=== PATIENT | male | born 1985 | race American Indian/Alaskan Native ===

== ENCOUNTER 2016-11-04 13:45 | Emergency (ER) | payer MEDICARE ==
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
[2016-11-04 15:22] LABS: Hematocrit 47.8 % (35.5-45.6); Hemoglobin 16.3 gm/dl (11.8-15.2); Mean Corpuscular HGB Conc 34 % (32-34); Mean Corpuscular Hemoglobin 28 pg (28-32); Mean Corpuscular Volume 83 fl (84-94); Platelet Count 267 K/mm3 (140-440); Red Blood Count 5.76 M/mm3 (3.65-5.03); Red Cell Distribution Width 13.3 % (13.2-15.2); White Blood Count 5.6 K/mm3 (4.5-11.0)
[2016-11-04 15:30] LABS: Basophils % (Auto) 0.6 % (0.0-1.8); Eosinophils % (Auto) 1.3 % (0.0-4.3)
[2016-11-04 15:46] LABS: Creatine Kinase MB 1.3 ng/mL (0.0-4.0)
[2016-11-04 15:47] LABS: Alanine Aminotransferase 21 units/L (7-56); Albumin 4.6 g/dL (3.9-5); Albumin/Globulin Ratio 1.3 %; Alkaline Phosphatase 58 units/L (35-129); Anion Gap 19 mmol/L; BUN/Creatinine Ratio 7.27; Bilirubin,Total 0.9 mg/dL (0.1-1.2); Blood Urea Nitrogen 8 mg/dL (9-20); Calcium 9.7 mg/dL (8.4-10.2); Carbon Dioxide 27 mmol/L (22-30); Chloride 98.7 mmol/L (98-107); Creatine Kinase 261 units/L (55-170); Glucose 87 mg/dL (75-100); Lipase 35 units/L (13-60); Potassium 4.2 mmol/L (3.6-5.0); Sodium 140 mmol/L (137-145); Total Protein 8.1 g/dL (6.3-8.2)
[2016-11-04 18:41] LABS: Urine Drugs of Abuse Note Disclamer
[2016-11-04 19:18] LABS: Bilirubin,Urine NEG (Negative); Blood,Urine NEG (Negative); Ketones,Urine NEG (Negative); Leukocyte Esterase,Urine NEG (Negative); Nitrite,Urine NEG (Negative); Protein,Urine <15 mg/dL mg/dL (Negative); RBC,Urine < 1.0 /HPF (0.0-6.0); Urobilinogen,Urine < 2.0 mg/dL (<2.0); WBC,Urine < 1.0 /HPF (0.0-6.0)
[2016-11-04 20:40] VITALS: BP 142/91
[2016-11-04 21:33] LABS: Creatine Kinase 244 units/L (55-170); Creatine Kinase MB 1.1 ng/mL (0.0-4.0)
--- NOTE | 2016-11-05 13:03 | ED Elopement Review ---
ED Pt Elopement review - Results review Lab results: Laboratory Tests 11/04/16 11/04/16 11/04/16 15:08 15:08 15:08 WBC 5.6 RBC 5.76 H Hgb 16.3 H Hct 47.8 H MCV 83 L MCH 28 MCHC 34 RDW 13.3 Plt Count 267 Lymph % (Auto) 35.5 H [place] % (Auto) 8.3 H Eos % (Auto) 1.3 Baso % (Auto) 0.6 Lymph # 2.1 [place] # 0.5 Eos # 0.1 Baso # 0.0 Seg Neutrophils % 54.3 Seg Neutrophils # 3.2 APTT 25.2 Sodium 140 Potassium 4.2 Chloride 98.7 Carbon Dioxide 27 Anion Gap 19 BUN 8 L Creatinine 1.1 Estimated GFR > 60 BUN/Creatinine Ratio 7.27 Glucose 87 Calcium 9.7 Total Bilirubin 0.9 AST 28 ALT 21 Alkaline Phosphatase 58 Total Creatine Kinase 261 H CK-MB (CK-2) 1.3 CK-MB (CK-2) Rel Index 0.4 Troponin T < 0.010 Total Protein 8.1 Albumin 4.6 Albumin/Globulin Ratio 1.3 Amylase Lipase 35 Urine Color Urine Turbidity Urine pH Ur Specific [place] Urine Protein Urine Glucose (UA) Urine Ketones Urine Blood Urine Nitrite Urine Bilirubin Urine Urobilinogen Ur Leukocyte Esterase Urine WBC (Auto) Urine RBC (Auto) U Epithel Cells (Auto) Urine Opiates Screen Urine Methadone Screen Ur Barbiturates Screen Ur Phencyclidine Scrn Ur Amphetamines Screen U Benzodiazepines Scrn Urine Cocaine Screen U Marijuana (THC) Screen Drugs of Abuse Note Blood Type Antibody Screen 11/04/16 11/04/16 11/04/16 15:08 15:08 18:18 WBC RBC Hgb Hct MCV MCH MCHC RDW Plt Count Lymph % (Auto) [place] % (Auto) Eos % (Auto) Baso % (Auto) Lymph # [place] # Eos # Baso # Seg Neutrophils % Seg Neutrophils # APTT Sodium Potassium Chloride Carbon Dioxide Anion Gap BUN Creatinine Estimated GFR BUN/Creatinine Ratio Glucose Calcium Total Bilirubin AST ALT Alkaline Phosphatase Total Creatine Kinase CK-MB (CK-2) CK-MB (CK-2) Rel Index Troponin T < 0.010 Total Protein Albumin Albumin/Globulin Ratio Amylase 124 Lipase Urine Color Urine Turbidity Urine pH Ur Specific [place] Urine Protein Urine Glucose (UA) Urine Ketones Urine Blood Urine Nitrite Urine Bilirubin Urine Urobilinogen Ur Leukocyte Esterase Urine WBC (Auto) Urine RBC (Auto) U Epithel Cells (Auto) Urine Opiates Screen Urine Methadone Screen Ur Barbiturates Screen Ur Phencyclidine Scrn Ur Amphetamines Screen U Benzodiazepines Scrn Urine Cocaine Screen U Marijuana (THC) Screen Drugs of Abuse Note Blood Type O POSITIVE Antibody Screen Negative 11/04/16 11/04/16 11/04/16 18:30 18:30 20:42 WBC RBC Hgb Hct MCV MCH MCHC RDW Plt Count Lymph % (Auto) [place] % (Auto) Eos % (Auto) Baso % (Auto) Lymph # [place] # Eos # Baso # Seg Neutrophils % Seg Neutrophils # APTT Sodium Potassium Chloride Carbon Dioxide Anion Gap BUN Creatinine Estimated GFR BUN/Creatinine Ratio Glucose Calcium Total Bilirubin AST ALT Alkaline Phosphatase Total Creatine Kinase 244 H CK-MB (CK-2) 1.1 CK-MB (CK-2) Rel Index 0.4 Troponin T < 0.010 Total Protein Albumin Albumin/Globulin Ratio Amylase Lipase Urine Color Straw Urine Turbidity Clear Urine pH 6.0 Ur Specific [place] 1.008 Urine Protein <15 mg/dl Urine Glucose (UA) Neg Urine Ketones Neg Urine Blood Neg Urine Nitrite Neg Urine Bilirubin Neg Urine Urobilinogen < 2.0 Ur Leukocyte Esterase Neg Urine WBC (Auto) < 1.0 Urine RBC (Auto) < 1.0 U Epithel Cells (Auto) < 1.0 Urine Opiates Screen Presumptive negative Urine Methadone Screen Presumptive negative Ur Barbiturates Screen Presumptive negative Ur Phencyclidine Scrn Presumptive negative Ur Amphetamines Screen Presumptive negative U Benzodiazepines Scrn Presumptive negative Urine Cocaine Screen Presumptive positive U Marijuana (THC) Screen Presumptive negative Drugs of Abuse Note Disclamer Blood Type Antibody Screen - Call Back decision Pt Call Back Decision: No action required
== END 2016-11-04 20:55 | disposition left against medical advice (07) ==
LOC: ED 13:45
DX: F14.10 Cocaine abuse, uncomplicated (principal); R42 Dizziness and giddiness; J02.9 Acute pharyngitis, unspecified; R10.9 Unspecified abdominal pain
CPT/HCPCS: 36415; 80053; 80307; 81001; 82150; 82550; 82553; 83690; 84484; 85025; 85730; 86850; 86900; 86901; 93005; 93010

== ENCOUNTER 2018-06-28 19:18 | Emergency (ER) | payer MEDICARE | END 2018-06-28 19:35 | disposition left against medical advice (07) | LOC: ED 19:18 | DX: Z00.8 Encounter for other general examination (principal); Z53.21 Procedure and treatment not carried out due to patient leaving prior to being seen by health care provider ==